=== PATIENT | male | born 1970 | race Caucasian/White ===

== ENCOUNTER 2022-09-22 09:27 | Observation (INO) | payer OTHER, SELFPAY ==
[2022-09-22] VITALS (11 sets, daily range): BP systolic 136–159; BP diastolic 79–98; PULSE 62–98; RESP 14–19; TEMP 36.4–36.6; O2SAT 97–100; BMI 28.3; BMI 27.3; BMI 26.3
--- NOTE | 2022-09-22 09:45 | ED.VIS.CHEST ---
HPI History of Present Illness Chief Complaint: Palpitations Informant: patient Onset/Context/Timing Onset: Today Activity at onset: sudden Timing: Continuous Quality: Positive for Dull Location: Left Chest Worsened By: Nothing Relieved By: - (Shock by EMS) Associated Symptoms: Positive for Nausea, Dyspnea, Lightheadedness and Palpitations; Negative for Vomiting, Diaphoresis, Cough, Fever or Acid Reflux Narrative Narrative: Patient presents with palpitations that began today while he was at work. Patient works as a teacher elementary school. Patient states he felt his heart pounding and beating fast. Patient states it began rather suddenly. Patient states he was having dull pain on the left side of his chest. Patient states he was having some tingling down into the fingers of his left hand. Patient admits to some shortness of breath with this. Patient denies any fevers or chills. Patient admits to nausea but denies any vomiting. Patient mitts to some lightheadedness and weakness. Patient states that he drove himself home from the school today and took all of his gear off. Patient called EMS after that. Patient states that EMS shocked him on the way to the emergency department and he felt better after this. CVD Risk Factors: Positive for Hypertension and Diabetes; Negative for Hypercholesterolemia, Family History 1' </=55 or Smoking PE Risk Factors: Negative for Recent Travel/Surgery, Recent Immobilization, Prior DVT or PE, Cancer or OCP + Smoking + >/=35 [facility] Medical History Diabetes mellitus type 2 in nonobese Gout HTN (hypertension) PTSD (post-traumatic stress disorder) Home Medications allopurinol 100 mg tablet 100 mg PO DAILY 09/22/22 [History Last Taken Unknown] clonazepam 1 mg tablet 1 mg PO DAILY 09/22/22 [History Last Taken Unknown] cyanocobalamin (vitamin B-12) 5,000 mcg sublingual tablet (Vitamin B-12) 5,000 mcg PO DAILY 09/22/22 [History Last Taken Unknown] losartan 100 mg tablet 100 mg PO PRN PRN Blood Pressure 09/22/22 [History Last Taken Unknown] metformin 500 mg tablet 100 mg PO DAILY 09/22/22 [History Last Taken Unknown] montelukast 10 mg tablet 10 mg PO DAILY 09/22/22 [History Last Taken Unknown] pantoprazole 40 mg tablet,delayed release 40 mg PO DAILY 09/22/22 [History Last Taken Unknown] prazosin 1 mg capsule 1 mg PO DAILY 09/22/22 [History Last Taken Unknown] semaglutide 14 mg tablet (Rybelsus) 14 mg PO DAILY 09/22/22 [History Last Taken Unknown] tadalafil 5 mg tablet 5 mg PO DAILY 09/22/22 [History Last Taken Unknown] Allergy/AdvReac Type Severity Reaction Status Date / Time gabapentin Allergy Hives Verified 09/22/22 09:36 [id number] Reductase Allergy Other Verified 09/22/22 09:36 Inhibitor Surgical History no surgical history no surgical history Social History Smoking Status: Never smoker ROS ROS ED Constitutional Constitutional ED: Denies chills or fever(s) Eyes Eyes: Denies blurry vision or change in vision ENT ENT ED: Denies rhinorrhea or sore throat Cardiovascular Cardiovascular: Reports chest pain, palpitations and racing heartbeat Respiratory/Chest Respiratory/Chest: Reports dyspnea; Denies cough Gastrointestinal Gastrointestinal: Reports nausea; Denies abdominal pain or vomiting Genitourinary Genitourinary ED: Denies dysuria or hematuria Musculoskeletal Musculoskeletal: Denies back pain or neck pain Integumentary Denies abscess or rash Neurologic Neurologic: Reports weakness; Denies headache(s) Allergic/Immunologic Allergic/Immunologic ED: Denies mouth swelling or urticaria EXAM Physical Exam Const Vital Signs: 09/22/22 09:29 09/22/22 09:41 09/22/22 09:54 Temperature 97.5 F L Temperature Source Temporal Pulse Rate 91 Respiratory Rate 19 H Respiratory Effort Short of Breath Blood Pressure 159/98 H Blood Pressure Mean 118 Pulse Ox 97 98 Oxygen Delivery Method Room Air Nasal Cannula Oxygen Flow Rate (L/min) 2 09/22/22 10:45 09/22/22 12:00 Temperature Temperature Source Pulse Rate 98 75 Respiratory Rate 14 16 Respiratory Effort Blood Pressure 143/91 H 140/79 H Blood Pressure Mean 108 99 Pulse Ox 99 98 Oxygen Delivery Method Nasal Cannula Room Air Oxygen Flow Rate (L/min) 2 Positive well nourished and well developed General Appearance ED: well developed HEENT Reports moist mucous membranes Neck supple and no JVD Resp normal respiratory effort and clear to auscultation bilaterally Cardio regular rate and no murmurs Rhythm: abnormal rhythm ectopic beats GI normal to inspection, nondistended, normoactive bowel sounds and non-tender Palpation: soft Extremity normal to inspection General Extremety ED: Negative for edema or tenderness General Extremity: Negative for edema Neuro oriented x3, CN's II-XII intact bilaterally and no sensory deficits noted Sensorium / Orientation: alert Motor Exam: strength 5/5 throughout Psych mental status grossly normal Skin no rashes or lesions noted Heart Score History: Moderately Suspicious ECG: Normal Age: >45 - <65 years Risk Factors: 1 or 2 Risk Factors Troponin: </= Normal Limit Score: 3 MDM MDM MDM Narrative Medical decision making narrative: Patient was given baby aspirin here. EKG was obtained. On my interpretation, it showed a normal sinus rhythm with a rate of 95 with occasional PACs. MT interval, QRS interval, and QTc intervals were all normal. [place] was normal. There are no acute ST or T wave changes. CBC was within normal limits. Basic metabolic profile showed a slightly elevated glucose of 184. Initial high-sensitivity troponin was normal at 19. Portable 1 view chest x-ray was obtained. On my interpretation, lung dunham are clear. There is normal cardiac silhouette. Bony thorax is normal. There is no acute process noted. Radiologist also interpreted the x-ray and agrees. 2-hour repeat high-sensitivity troponin was 55. Although it is still in the normal range, the delta is elevated. Because of this, I recommended admission to the hospital for further evaluation. Patient is agreeable with this. Case was discussed with the hospitalist. Lab Data Attestation: I reviewed the patient's lab results. Labs: Laboratory Results - last 24 hr 09/22/22 09/22/22 09/22/22 09:40 09:40 12:30 WBC 6.1 RBC 5.55 Hgb 16.2 Hct 48.5 MCV 87.4 MCH 29.2 MCHC 33.4 RDW Std Deviation 42.6 RDW Coeff of Franco 13.4 Plt Count 201 MPV 9.8 Immature Gran % (Auto) 0.300 Neut % (Auto) 66.7 Lymph % (Auto) 22.1 [place] % (Auto) 7.7 Eos % (Auto) 2.9 Baso % (Auto) 0.3 Absolute Neuts (auto) 4.1 Absolute Lymphs (auto) 1.36 Nucleated RBC % 0 Sodium 138 Potassium 3.8 Chloride 103 Carbon Dioxide 24.0 Anion Gap 11 BUN 17 Creatinine 1.12 Estim Creat Clear Calc 88.18 Est GFR (MDRD) Af Amer 89 Est GFR (MDRD) Non-Af 73 BUN/Creatinine Ratio 15.2 Glucose 184 H Calcium 9.2 Troponin I High Sens 19 55 Radiography Chest X-Ray - ED: 1 View, Read by ED Physician, Read by Radiologist and No Acute Disease Diagnostic Testing: Clinical Impression(s) from Imaging Studies Chest X-Ray 09/22/22 10:05 IMPRESSION: Normal x-ray examination of the chest. Electronically Signed: Joe Echeverria MD at 10:53 EST , EKG Initial EKG: Attestation: I personally reviewed and interpreted this EKG as follows: Interpretation: Sinus Rhythm (With occasional PACs with a rate of 95) and No Acute Injury Pattern Prior EKG tracings: available for review Prior: Unchanged (02/10/2012) Discharge Plan Triage Chief Complaint: Palpitations ED Provider: Ousmane Jones Dx/Rx/DC Orders Clinical Impression: Chest pain, Atrial fibrillation with RVR Prescriptions: No Action metformin 500 mg tablet 100 mg PO DAILY prazosin 1 mg capsule 1 mg PO DAILY clonazepam 1 mg tablet 1 mg PO DAILY Label Comments: TAKE 1.5 TO 2 TABLETS AT BEDTIME. allopurinol 100 mg tablet 100 mg PO DAILY Label Comments: TAKE 1 TABLET BY MOUTH ONCE DAILY. FOR GOUT pantoprazole 40 mg tablet,delayed release (DR/EC) 40 mg PO DAILY Label Comments: Take 1 tablet by mouth once daily. montelukast 10 mg tablet 10 mg PO DAILY losartan 100 mg tablet 100 mg PO PRN PRN (Reason: Blood Pressure) tadalafil 5 mg tablet 5 mg PO DAILY Label Comments: TAKE 1 TABLET BY MOUTH EVERY DAY cyanocobalamin (vitamin B-12) [Vitamin B-12] 5,000 mcg tablet, sublingual 5,000 mcg PO DAILY Label Comments: DISSOLVE 1 TABLET UNDER THE TONGUE ONCE DAILY. Rybelsus 14 mg tablet 14 mg PO DAILY Primary Care Provider: Monet Steiner Referrals: Monet Steiner MD [Primary Care Provider] - Disposition Disposition: Acute Care Hospital [facility]
--- NOTE | 2022-09-22 09:52 | EKG12_ITS ---
Test Reason : CP Blood Pressure : / mmHG Vent. Rate : 095 BPM Atrial Rate : 095 BPM P-R Int : 178 ms QRS Dur : 082 ms QT Int : 360 ms P-R-T Axes : 051 043 041 degrees QTc Int : 452 ms Sinus rhythm with Premature atrial complexes with Aberrant conduction Otherwise normal ECG Confirmed by SANTOSH PLEITEZ, VIMAL ([id number]), news videotape editor NICOLA NELSON ([id number]) on 09/24/2022 10:19:43 AM Referred By: RICHARD Confirmed By:VIMAL FROST MD
[2022-09-22] MEDS: Aspirin 81 MG TAB.CHEW 324 MG PO (10:00)
--- NOTE | 2022-09-22 10:05 | RAD_ITS ---
STUDY: X-RAY CHEST REASON FOR EXAM: Male, 52 years old. Chest pain . Tachycardia. Diaphoresis. TECHNIQUE: Single AP portable view of the chest. COMPARISON: None. FINDINGS: EKG electrodes are seen. The lungs are clear and expanded. There is no demonstrated pleural abnormality. Normal size heart. Normal mediastinum and bal. Normal visualized pulmonary arteries. Normal visualized aortic arch and descending thoracic aorta. Normal visualized thoracic spine. Normal visualized ribs, clavicles, and shoulders. There is no demonstrated abnormality of the visualized soft tissue structures of the upper abdomen. RAD/Chest 1 View (Portable) IMPRESSION: Normal x-ray examination of the chest. Electronically Signed: Joe Echeverria MD at 10:53 EST ,
[2022-09-22 10:12] LABS: Absolute Lymphocyte Count 1.36 X10^3/uL (0.83-4.51); Absolute Neutrophil Count 4.1 X10^3/uL (2.0-7.7); Basophil# 0.02 X10^3/uL; Basophil% 0.3 % (0-1); Eosinophil# 0.18 X10^3/uL; Eosinophils% 2.9 % (0-5); Hematocrit 48.5 % (40-54); Hemoglobin 16.2 g/dL (13.0-16.5); Lymphocyte # 1.36 X10^3/ul (0.83-4.51); Lymphocyte % 22.1 % (19-41); Mean Corp Hgb Conc 33.4 g/dL (32-36); Mean Corpuscular Hgb 29.2 pg (27.0-32.0); Mean Corpuscular Volume 87.4 fL (80-94); Mean Platelet Vol. 9.8 fl (6.2-12.0); Monocyte# 0.47 X10^3/uL; Monocyte% 7.7 % (0-10); NRBC Flagged by Analyzer 0 % (0-5); Neutrophil # 4.09 X10^3/uL (2.7-7.7); Neutrophil % 66.7 % (47-70); Platelet Count 201 K/mm3 (150-450); RBC Distribution Width CV 13.4 % (11.6-14.6); RBC Distribution Width SD 42.6 fl (35.1-43.9); Red Blood Count 5.55 M/mm3 (4.6-6.2); White Blood Count 6.1 K/mm3 (4.4-11.0)
[2022-09-22 10:29] LABS: Anion Gap 11 (5-15); BUN 17 mg/dL (7-18); BUN/Creat Ratio 15.2 RATIO (10-20); Calcium,Total 9.2 mg/dL (8.5-10.1); Chloride 103 mmol/L (98-107); Creatinine, Serum 1.12 mg/dL (0.70-1.30); EST Glomerular Filtration Rate 73 mL/min (>60); Est Glom Filt Rate - Afr Amer 89 mL/min (>60); Estimated Creatinine Clearance 88.18 ml/min; Glucose 184 mg/dL (74-106); Potassium 3.8 mmol/L (3.5-5.1); Sodium Level 138 mmol/L (136-145); Troponin-I HS (w/2H Reflex) 19 pg/mL (3.0-78.0)
[2022-09-22 12:06] LABS: Reflex Troponin-HS? (from REC) Y
[2022-09-22 12:54] LABS: Troponin-I HS 55 pg/mL (3.0-78.0)
--- NOTE | 2022-09-22 13:46 | HP.PCM.HOS_ITS ---
HPI - General General Date of Service: 09/22/22 Chief Complaint: Palpitations HPI Narrative CAMACHO YODER, is a 52 M who presents with palpitations. Symptoms began around 8 AM. 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 He began experiencing palpitations, shortness of breath and left lateral chest pressure. He has never had any of this before. He went to the school nurse who took his pulse and was noted to be in the 150s and was advised to go to the emergency room. Patient did go home to remove his firearm as well as vest and then called EMS. EMS saw him patient was noted to be in A. fib with RVR with a heart rate into the 140s and 150s. Patient was apparently looking very ill and had a weak pulse and then was cardioverted in route. Patient feels fine now though he does still have some chest pressure. Patient has been converted to normal sinus rhythm. Patient has no prior history of atrial fibrillation. Patient states that he drinks 1 cup of coffee per day and had his coffee but did not finish it. He drinks alcohol occasionally, though the patient's father, who is present, states that he drinks more than that but cannot tell me how much but thinks that it is daily. [facility] Medical History Diabetes mellitus type 2 in nonobese Gout HTN (hypertension) PTSD (post-traumatic stress disorder) Home Medications allopurinol 100 mg tablet 100 mg PO DAILY 09/22/22 [History Last Taken Unknown] bempedoic acid 180 mg tablet (Nexletol) 180 mg PO DAILY CHOLESTEROL 09/22/22 [History Last Taken 09/22/22] cholecalciferol (vitamin D3) 25 mcg (1,000 unit) tablet 50 mcg PO DAILY SUPPLEMENT 09/22/22 [History Last Taken 09/22/22] clonazepam 1 mg tablet 1 mg PO DAILY 09/22/22 [History Last Taken Unknown] cyanocobalamin (vitamin B-12) 5,000 mcg sublingual tablet (Vitamin B-12) 5,000 mcg PO DAILY 09/22/22 [History Last Taken Unknown] icosapent ethyl 1 gram capsule (Vascepa) 2 g PO BID CHOLESTEROL 09/22/22 [History Last Taken 09/22/22] losartan 25 mg tablet 25 mg PO DAILY PRN SBP > 140 09/22/22 [History Last Taken Unknown] melatonin 10 mg tablet 20 mg PO DAILY SLEEP 09/22/22 [History Last Taken 09/21/22] metformin 500 mg tablet 100 mg PO DAILY 09/22/22 [History Last Taken Unknown] montelukast 10 mg tablet 10 mg PO DAILY 09/22/22 [History Last Taken Unknown] pantoprazole 40 mg tablet,delayed release 40 mg PO DAILY 09/22/22 [History Last Taken Unknown] prazosin 1 mg capsule 1 mg PO DAILY 09/22/22 [History Last Taken Unknown] semaglutide 14 mg tablet (Rybelsus) 14 mg PO DAILY 09/22/22 [History Last Taken Unknown] tadalafil 5 mg tablet 5 mg PO DAILY 09/22/22 [History Last Taken Unknown] Allergy/AdvReac Type Severity Reaction Status Date / Time gabapentin Allergy Hives Verified 09/22/22 09:36 [id number] Reductase Allergy Other Verified 09/22/22 09:36 Inhibitor Family History (Updated 09/22/22 @ 13:[address] Ousmane Wick DO) Father Atrial fibrillation Surgical History no surgical history Social History (Updated 09/22/22 @ 13:[address] Ousmane Wick DO) Smoking Status: Never smoker alcohol intake: current alcohol intake frequency: a few times a month substance use type: does not use ROS ROS Narrative Denies any fever or chills, no history of VTE, has Blos about 70 pounds though this was intentional but that was not recently. All review of systems were negative except as mentioned above in the history of present illness and the other review of systems. Vital Signs Vital Signs Vital Signs: 09/22/22 09:29 09/22/22 09:41 09/22/22 09:54 Temperature 36.4 C L Temperature Source Temporal Pulse Rate 91 Respiratory Rate 19 H Respiratory Effort Short of Breath Blood Pressure 159/98 H Blood Pressure Mean 118 Pulse Ox 97 98 Oxygen Delivery Method Room Air Nasal Cannula Oxygen Flow Rate (L/min) 2 09/22/22 10:45 09/22/22 12:00 09/22/22 13:29 Temperature Temperature Source Pulse Rate 98 75 72 Respiratory Rate 14 16 15 Respiratory Effort Blood Pressure 143/91 H 140/79 H 142/79 H Blood Pressure Mean 108 99 100 Pulse Ox 99 98 99 Oxygen Delivery Method Nasal Cannula Room Air Oxygen Flow Rate (L/min) 2 09/22/22 13:29 Temperature 36.6 C Temperature Source Temporal Pulse Rate 68 Respiratory Rate 16 Respiratory Effort Blood Pressure 157/98 H Blood Pressure Mean 117 Pulse Ox 99 Oxygen Delivery Method Room Air Oxygen Flow Rate (L/min) Weight Weight: 97.5 kg Body Mass Index (BMI) 28.3 Physical Exam Const alert and oriented x3 HEENT normocephalic and head/scalp atraumatic Resp normal respiratory effort, no retractions, no use of accessory muscles and clear to auscultation bilaterally Cardio regular rate, regular rhythm, S1 normal heart sound and S2 normal heart sound GI normal to inspection, nondistended, normoactive bowel sounds, soft to palpation, non-tender and non-distended Extremity normal to inspection Neuro oriented x3 and CN's II-XII intact bilaterally Psych affect normal Results Lab / Micro Data Attestation: I reviewed the patient's lab results. Result Diagrams: 09/22/22 09:40 09/22/22 09:40 Labs: Laboratory Results - last 24 hr 09/22/22 09:40: WBC 6.1, RBC 5.55, Hgb 16.2, Hct 48.5, MCV 87.4, MCH 29.2, MCHC 33.4, RDW Std Deviation 42.6, RDW Coeff of Franco 13.4, Plt Count 201, MPV 9.8, Immature Gran % (Auto) 0.300, Neut % (Auto) 66.7, Lymph % (Auto) 22.1, [place] % (Auto) 7.7, Eos % (Auto) 2.9, Baso % (Auto) 0.3, Absolute Neuts (auto) 4.1, Absolute Lymphs (auto) 1.36, Nucleated RBC % 0 09/22/22 09:40: Sodium 138, Potassium 3.8, Chloride 103, Carbon Dioxide 24.0, Anion Gap 11, BUN 17, Creatinine 1.12, Estim Creat Clear Calc 88.18, Est GFR (MDRD) Af Amer 89, Est GFR (MDRD) Non-Af 73, BUN/Creatinine Ratio 15.2, Glucose 184 H, Calcium 9.2, Troponin I High Sens 19 09/22/22 12:30: Troponin I High Sens 55 EKG Initial EKG: Attestation: I personally reviewed and interpreted this EKG as follows: Prior EKG tracings: available for review EKG Rhythm Intrepretation: Atrial Fibrillation (With RVR) Follow-up EKG: Attestation: I personally reviewed and interpreted this EKG as follows: Prior EKG tracings: available for review EKG Rhythm Intrepretation: Sinus Rhythm (With PVCs) Radiology Impression Chest X-Ray 09/22/22 10:05 IMPRESSION: Normal x-ray examination of the chest. Electronically Signed: Joe Echeverria MD at 10:53 EST , Assessment & Plan Assessment/Plan (1) Atrial fibrillation with RVR: PLAN: Cardioverted in route via EMS No prior history [id number] of 2 given history of diabetes hypertension Plan * Anticoagulation: Discussed with the patient is a need for anticoagulation now prevent stroke. Will initiate enoxaparin for now and but eventually changed over to oral once all the remaining studies have been completed * Check 2D echocardiogram * start metoprolol 25 mg twice daily (2) Chest pain: PLAN: Troponins were normal but did trend upwards. This upward trend may be due to the A. fib with RVR and possibly due to the cardioversion Continue to monitor the troponins Chest pain may be related with A. fib but cannot rule out a primary event Plan * Continue with aspirin * Check lipid panel * Cycle troponins * Check stress test * Patient will need to follow with cardiology as outpatient. No cardiology consultation at this time unless troponins go up significantly or if stress test is abnormal PLAN: Plan Chronic conditions * Diabetes mellitus type 2: On metformin. Continue metformin. Add sliding scale insulin. Check A1c * Hypertension: Continue losartan VTE prophylaxis: Not indicated as patient is anticoagulated. Charges/Coding Visit Charges OBSV E&M: 52874 Initial observation care L3
--- NOTE | 2022-09-22 15:02 | ECHOD_ITS ---
Reason For Study: ATRIAL FIB-FLUTTER Procedure This was a 2D Doppler, Color Flow transthoracic echocardiogram. Exam performed portable in patient room. Left Ventricle Normal LV size. Left ventricular systolic function is normal. The estimated ejection fraction is 55 %. No regional wall motion abnormalities noted. Right Ventricle Normal RV size. Normal systolic function. Atria Normal left atrium. Normal right atrium. Mitral Valve Normal mitral valve. Tricuspid Valve Normal tricuspid valve. Aortic Valve Trisinus/trileaflet aortic valve. Pulmonic Valve Normal pulmonic valve. Great Vessels Normal aortic root. The pulmonary artery is normal size. Inferior vena cava collapse with respiration. Pericardium/Pleural No pericardial effusion. MMode/2D Measurements & Calculations LVIDd: 4.5 cm IVSd: 1.0 cm Ao root diam: 3.3 cm LVIDs: 3.1 cm LVPWd: 1.0 cm RVDd: 3.9 cm FS: 32.0 % LAV(MOD-bp): 56.7 ml LVAd ap4: 35.0 cm2 SV(MOD-sp4): 69.5 ml LAV(MOD-bp) Indexed: 26.3 ml/m2 LVLd ap4: 8.8 cm LAV(MOD-sp2): 56.7 ml EDV(MOD-sp4): 115.0 ml LAV(MOD-sp4): 53.6 ml EDV(sp4-el): 117.8 ml LVAs ap4: 19.7 cm2 LVLs ap4: 7.3 cm ESV(MOD-sp4): 45.4 ml ESV(sp4-el): 45.2 ml EF(MOD-sp4): 60.5 % EF(sp4-el): 61.7 % SV(sp4-el): 72.7 ml LA A4 area: 19.9 cm2 LA dimension(2D): 4.0 cm RA A4 area: 15.8 cm2 Time Measurements MV dec time: 0.18 sec Doppler Measurements & Calculations MV E max jaime: 86.8 cm/sec Lat Peak E' Jaime: 13.2 cm/sec Med Peak E' Jaime: 10.1 cm/sec MV A max jaime: 80.1 cm/sec E/E' lat: 6.6 E/E' med: 8.6 MV E/A: 1.1 Ao V2 max: 106.9 cm/sec LV V1 max: 83.3 cm/sec PA V2 max: 85.9 cm/sec Ao max P.6 mmHg LV V1 max P.8 mmHg ECHO/Echo Complete Interpretation Summary Normal LV size. Left ventricular systolic function is normal. The estimated ejection fraction is 55 %. Structurally normal valves. Compared to previous study, the left ventricular sy stolic function is the same.. Ordering Physician: Ousmane Wick Referring Physician: JM SANCHES Performed By: Sadie Thapa RDCS
[2022-09-22 15:42] LABS: Hemoglobin A1c 5.5 % (3.8-5.6)
[2022-09-22 16:10] LABS: Troponin-I HS 83 pg/mL (3.0-78.0)
[2022-09-22 16:55] LABS: Bedside Glucose 85 mg/dL (74-106)
--- NOTE | 2022-09-22 19:00 | NURSING ---
emergency documentation in effect
--- NOTE | 2022-09-22 19:00 | PCA ---
EMERGENCY DOCUMENTATION
[2022-09-22] MEDS: Enoxaparin 100 MG/ML Syringe SC (20:52)
[2022-09-22] MEDS: Metoprolol Tartrate 25 MG Tablet PO (20:52)
[2022-09-22] MEDS: clonazePAM 1 MG Tablet PO (22:49)
[2022-09-22] MEDS: Montelukast 10 MG Tablet PO (22:49)
[2022-09-22] MEDS: Pantoprazole Sodium 40 MG Tablet PO (22:49)
[2022-09-22 23:31] LABS: Bedside Glucose 113 mg/dL (74-106)
[2022-09-22] MEDS: Doxazosin 1 MG Tablet PO (23:57)
[2022-09-23] VITALS (7 sets, daily range): BP systolic 117–136; BP diastolic 67–97; PULSE 63–69; RESP 16–18; TEMP 36.3–36.4; O2SAT 96–98
--- NOTE | 2022-09-23 01:40 | EKG12_ITS ---
Test Reason : AM EKG Blood Pressure : / mmHG Vent. Rate : 068 BPM Atrial Rate : 068 BPM P-R Int : 212 ms QRS Dur : 082 ms QT Int : 404 ms P-R-T Axes : 035 032 024 degrees QTc Int : 429 ms Sinus rhythm with 1st degree A-V block with Premature atrial complexes with Aberrant conduction Otherwise normal ECG Confirmed by SANTOSH PLEITEZ, VIMAL ([id number]), story editor NICOLA NELSON ([id number]) on 09/24/2022 10:49:41 AM Referred By: Confirmed By:VIMAL FROST MD
--- NOTE | 2022-09-23 02:49 | CPS ---
Pt has sleep lab machine. It's set to autopap which is what pt is on at home with a range of 14-20. on room air.
[2022-09-23] MEDS: Aspirin 81 MG TAB.CHEW PO (06:30)
[2022-09-23 07:01] LABS: Bedside Glucose 115 mg/dL (74-106)
[2022-09-23 07:06] LABS: Absolute Lymphocyte Count 1.88 X10^3/uL (0.83-4.51); Absolute Neutrophil Count 3.9 X10^3/uL (2.0-7.7); Basophil# 0.01 X10^3/uL; Basophil% 0.1 % (0-1); Eosinophil# 0.29 X10^3/uL; Eosinophils% 4.3 % (0-5); Hematocrit 45.7 % (40-54); Hemoglobin 14.9 g/dL (13.0-16.5); Lymphocyte # 1.88 X10^3/ul (0.83-4.51); Lymphocyte % 27.9 % (19-41); Mean Corp Hgb Conc 32.6 g/dL (32-36); Mean Corpuscular Volume 88.9 fL (80-94); Mean Platelet Vol. 9.7 fl (6.2-12.0); Monocyte# 0.64 X10^3/uL; Monocyte% 9.5 % (0-10); NRBC Flagged by Analyzer 0 % (0-5); Neutrophil # 3.92 X10^3/uL (2.7-7.7); Neutrophil % 58.1 % (47-70); Platelet Count 182 K/mm3 (150-450); RBC Distribution Width CV 13.5 % (11.6-14.6); RBC Distribution Width SD 43.4 fl (35.1-43.9); Red Blood Count 5.14 M/mm3 (4.6-6.2); White Blood Count 6.8 K/mm3 (4.4-11.0)
[2022-09-23 07:49] LABS: ALB/GLOB Ratio 1.1 RATIO (0.9-2.4); AST(SGOT) 14 U/L (15-37); Alanine Aminotransfer ALT/SGPT 22 U/L (16-61); Albumin, Serum 3.2 g/dL (3.2-5.0); Alkaline Phosphatase 45 U/L (45-117); Anion Gap 6 (5-15); BUN 17 mg/dL (7-18); BUN/Creat Ratio 19.1 RATIO (10-20); Calcium,Total 8.7 mg/dL (8.5-10.1); Chloride 105 mmol/L (98-107); Cholesterol 164 mg/dL (200); Creatinine, Serum 0.89 mg/dL (0.70-1.30); EST Glomerular Filtration Rate 95 mL/min (>60); Est Glom Filt Rate - Afr Amer 116 mL/min (>60); Estimated Creatinine Clearance 110.97 ml/min; Glucose 112 mg/dL (74-106); High Density Lipoprotein 44 mg/dL; Potassium 3.5 mmol/L (3.5-5.1); Protein, Total 6.2 g/dL (6.4-8.2); Sodium Level 138 mmol/L (136-145); Triglycerides 194 mg/dL; Very Low Density Lipoprotein 39 mg/dL (5-40)
[2022-09-23 12:25] LABS: Bedside Glucose 109 mg/dL (74-106)
--- NOTE | 2022-09-23 12:31 | STRESSREP_ITS ---
Stress Test Report Date: 09-23-2022 Procedure: Exercise tolerance test/imaging study Indications: Chest pain; shortness of breath/dyspnea; palpitations Consent: Per the patient Procedure: The patient exercised on a Sharif protocol for 9 minutes and 52 seconds completing completing Stage III and 52 seconds of Stage IV achieving a peak heart rate of 146 bpm (86% predicted maximal heart rate) with resting blood pressure of 130/84 mmHg and a peak blood pressure 168/98 mmHg and a peak MET capacity of 12 METs. The baseline ECG demonstrated normal sinus rhythm. The peak exercise ECG demonstrated no obvious ECG changes. There was a rare PVC during exercise and recovery. The functional capacity was considered good. There was notation of chest discomfort, dyspnea, and leg fatigue during exercise. The examination was discontinued secondary to chest discomfort, dyspnea, and leg fatigue. Impression: 1. Technically adequate (percent predicted maximal heart rate greater than 85%) exercise tolerance test 2. Peak exercise ECG with no obvious ECG changes 3. There was a rare PVC during exercise and recovery 4. Nuclear images pending Myocardial perfusion imaging study: Technique: The patient was injected with 11.5 mCi of technetium 99m Cardiolite and subsequently rest SPECT Cardiolite nuclear imaging was obtained in the horizontal long, vertical long, and short axis views. The patient exercised on a Sharif protocol for 9 minutes and 52 seconds completing completing Stage III and 52 seconds of Stage IV achieving a peak heart rate of 146 bpm (86% predicted maximal heart rate) with resting blood pressure of 130/84 mmHg and a peak blood pressure 168/98 mmHg and a peak MET capacity of 12 METs. The patient was injected with 34.2 mCi of technetium 99m Cardiolite and subsequently stress SPECT Cardiolite nuclear imaging was obtained in the horizontal long, vertical long, and short axis views. A gated Cardiolite study at peak stress was o btained. Interpretation: Rest and stress SPECT Cardiolite nuclear imaging status post realignment, normalization, and attenuation correction, demonstrates the appearance of relative uniform tracer uptake and myocardial perfusion appearing within normal limits. There is end systolic thickening and brightening. The gated Cardiolite study demonstrates myocardial thickening and inward wall motion. The reported LVEF is 60%. Impression: 1. Rest and stress SPECT Cardiolite nuclear imaging demonstrate relative uniform tracer uptake and myocardial perfusion appearing within normal limits. 2. The gated Cardiolite study reports an LVEF of 60%. This note was generated with Dragon dictation software. It may contain incorrect words, spelling, and punctuation that were not noted in checking the note before signing.
[2022-09-23] MEDS: metFORMIN HCl 500 MG Tablet PO (12:58)
[2022-09-23] MEDS: Metoprolol Tartrate 25 MG Tablet PO (12:59)
[2022-09-23] MEDS: Enoxaparin 100 MG/ML Syringe SC (13:02)
[2022-09-23] MEDS: Allopurinol 100 MG Tablet PO (13:03)
--- NOTE | 2022-09-23 14:40 | DCINST_ITS ---
Discharge Instructions Diet Discharge Diet: Low fat / Low cholesterol and 2000 mg Sodium Diet Activity Discharge Activity: Return to Normal Activity Weight Bearing Status: Weight bearing as tolerated Follow Up Care Test Results: Test results from this visit will be discussed in further detail at your follow- up appointment, if applicable. Discharge Plan Admission Admit Date/Time: 09/22/22 13:31 Primary Reason for Your Visit: A. fib with RVR Attending Provider: Rebekah Cortez Primary Care Provider: Monet Steiner Consulting Providers: Ousmane Wick Instructions Patient Instructions: AFib, AFib Preventing Stroke, What Is Atrial Flutter/Atrial Fibrillation? Additional Instructions / Restrictions: Take note of changes to your medications. Follow-up with your primary care doctor within 1 week Follow-up with cardiology within 2 weeks Discharge Orders/Prescriptions Prescriptions: New metoprolol tartrate 25 mg Tablet 25 mg PO BID 30 Days Qty: 60 0RF Eliquis 5 mg tablet 5 mg PO BID 30 Days Qty: 60 0RF losartan 25 mg tablet 25 mg PO DAILY 30 Days Qty: 30 0RF Continued metformin 500 mg tablet 500 mg PO BID prazosin 1 mg capsule 1 mg PO DAILY clonazepam 1 mg tablet 2 mg PO QHS Label Comments: TAKE 1.5 TO 2 TABLETS AT BEDTIME. allopurinol 100 mg tablet 100 mg PO DAILY Label Comments: TAKE 1 TABLET BY MOUTH ONCE DAILY. FOR GOUT pantoprazole 40 mg tablet,delayed release (DR/EC) 40 mg PO DAILY Label Comments: Take 1 tablet by mouth once daily. montelukast 10 mg tablet 10 mg PO DAILY tadalafil 5 mg tablet 5 mg PO DAILY Label Comments: TAKE 1 TABLET BY MOUTH EVERY DAY cyanocobalamin (vitamin B-12) [Vitamin B-12] 5,000 mcg tablet, sublingual 5,000 mcg PO DAILY Label Comments: DISSOLVE 1 TABLET UNDER THE TONGUE ONCE DAILY. Rybelsus 14 mg tablet 14 mg PO DAILY Nexletol 180 mg tablet 180 mg PO DAILY Label Comments: TAKE 1 TABLET BY MOUTH EVERY DAY cholecalciferol (vitamin D3) 25 mcg (1,000 unit) Tablet 50 mcg PO DAILY melatonin 10 mg Tablet 20 mg PO DAILY icosapent ethyl [Vascepa] 1 gram Capsule 2 g PO BID Discontinued losartan 25 mg tablet 25 mg PO DAILY PRN (Reason: SBP > 140) Label Comments: TAKE 1 TABLET BY MOUTH ONCE DAILY. HOLD FOR SYSTOLIC BLOOD PRESSURE (TOP NUMBER) LESS THAN 140 Referrals / Follow Up: Monet Steiner MD [Primary Care Provider] - Raudel Jacobo MD [Med Staff - Active Staff] - 10/30/22 1:15 pm Disposition Disposition (needs filled in before D/C Order can be placed): Home, Self Care
--- NOTE | 2022-09-23 14:48 | DS.PCM_ITS ---
Providers Date of Admission: 09/22/22 Date of Discharge: 09/23/22 Primary Care Physician: Dr. Jm Sanches MD Reason For Visit: AFIB CHEST PAIN Diagnosis Discharge Diagnosis (1) Atrial fibrillation with RVR: Status: Acute Code(s): I48.91 - Unspecified atrial fibrillation (2) Chest pain: Status: Acute Code(s): R07.9 - Chest pain, unspecified Medications at Discharge Home Medications allopurinol 100 mg tablet 100 mg PO DAILY GOUT 09/22/22 bempedoic acid 180 mg tablet (Nexletol) 180 mg PO DAILY CHOLESTEROL 09/22/22 cholecalciferol (vitamin D3) 25 mcg (1,000 unit) tablet 50 mcg PO DAILY SUPPLEMENT 09/22/22 clonazepam 1 mg tablet 2 mg PO QHS PTSD 09/22/22 cyanocobalamin (vitamin B-12) 5,000 mcg sublingual tablet (Vitamin B-12) 5,000 mcg PO DAILY SUPPLEMENT 09/22/22 icosapent ethyl 1 gram capsule (Vascepa) 2 g PO BID CHOLESTEROL 09/22/22 melatonin 10 mg tablet 20 mg PO DAILY SLEEP 09/22/22 metformin 500 mg tablet 500 mg PO BID BLOOD SUGAR 09/22/22 montelukast 10 mg tablet 10 mg PO DAILY BRONCHITIS 09/22/22 pantoprazole 40 mg tablet,delayed release 40 mg PO DAILY GALBLADER 09/22/22 prazosin 1 mg capsule 1 mg PO DAILY PTSD 09/22/22 semaglutide 14 mg tablet (Rybelsus) 14 mg PO DAILY DIABETES 09/22/22 tadalafil 5 mg tablet 5 mg PO DAILY prostate 09/22/22 apixaban 5 mg tablet (Eliquis) 5 mg PO BID 30 days #60 tabs 09/23/22 losartan 25 mg tablet 25 mg PO DAILY 30 days #30 tabs 09/23/22 metoprolol tartrate 25 mg tablet 25 mg PO BID 30 days #60 tabs 09/23/22 Hospital Course Operations None Procedures 2-D Echocardiogram and Nuclear stress test Summary of Care Provided Minutes Spent on Discharge: 35 Hospital Course: 52-year-old male with past medical history of type II DM, hypertension, FREDIS who comes in with complaints of palpitations and left-sided chest pain. Patient works as a school fundraising director and went to the school nurse and his heart rate was in the 150s. He was advised to go to the emergency room. He however went home to pull down his firearm and vest and then called the EMS. When the EMS got there, patient was in A. fib with RVR with heart rate in the 140s and 150s. Patient looked very ill and had a weak pulse. He was cardioverted en route. By the time patient got to the emergency room, he was in normal sinus rhythm. Patient was admitted to the progressive care unit and monitored overnight. He remained in normal sinus rhythm. He was kept on metoprolol 25 mg p.o. twice da yaritza as well as Lovenox. He underwent stress test that was unremarkable. 2D echo showed EF 55%, LV systolic function was normal. His TSH was 1.0. Patient was discharged in a stable state. He was discharged on metoprolol 25 mg p.o. twice daily and Eliquis. He will follow-up with cardiology within 2 to 4 weeks. He was told to follow-up with his primary care doctor within a week. Physical Exam Narrative Physical exam: General: Alert, Oriented x3, Cooperative, No apparent distress HEENT: Atraumatic Oral: Moist Mucosa Neck: Supple Lungs: Clear to auscultation Cardiovascular: HS I+II, regular, no murmurs Abdomen: Bowel Sounds Present, Soft, Non Tender Extremities: No edema Skin: No rashes, No breakdown Neurological: Grossly intact Psych/Mental Status: Appropriate Weight / BMI Weight Weight: 90.537 kg Body Mass Index (BMI) 26.3 ABG / Lab / Microbiology Data Result Diagrams: 09/23/22 06:40 09/23/22 06:40 Laboratory: Laboratory Results - last 24 hr 09/22/22 09:40: Hemoglobin A1c 5.5 09/22/22 15:26: Troponin I High Sens 83 H, TSH 1.00 09/22/22 16:24: POC Glucose 85 09/22/22 20:50: POC Glucose 113 H 09/23/22 06:27: POC Glucose 115 H 09/23/22 06:40: WBC 6.8, RBC 5.14, Hgb 14.9, Hct 45.7, MCV 88.9, MCH 29.0, MCHC 32.6, RDW Std Deviation 43.4, RDW Coeff of Franco 13.5, Plt Count 182, MPV 9.7, Immature Gran % (Auto) 0.100, Neut % (Auto) 58.1, Lymph % (Auto) 27.9, [place] % (Auto) 9.5, Eos % (Auto) 4.3, Baso % (Auto) 0.1, Absolute Neuts (auto) 3.9, Absolute Lymphs (auto) 1.88, Nucleated RBC % 0 09/23/22 06:40: Sodium 138, Potassium 3.5, Chloride 105, Carbon Dioxide 27.0, Anion Gap 6, BUN 17, Creatinine 0.89, Estim Creat Clear Calc 110.97, Est GFR (MDRD) Af Amer 116, Est GFR (MDRD) Non-Af 95, BUN/Creatinine Ratio 19.1, Glucose 112 H, Calcium 8.7, Total Bilirubin 0.40, AST 14 L, ALT 22, Alkaline Phosphatase 45, Total Protein 6.2 L, Albumin 3.2, Globulin 3.0, Albumin/Globulin Ratio 1.1, Triglycerides 194, Cholesterol 164, LDL Cholesterol 81, VLDL Cholesterol 39, HDL Cholesterol 44 09/23/22 12:04: POC Glucose 109 H Radiography Diagnostic Testing: Radiology Impression Echocardiogram 09/22/22 15:02 Interpretation Summary Normal LV size. Left ventricular systolic function is normal. The estimated ejection fraction is 55 %. Structurally normal valves. Compared to previous study, the left ventricular systolic function is the same.. Ordering Physician: Ousmane Wick Referring Physician: JM SANCHES Performed By: Sadie Thapa RDCS D/C Instructions Discharge Diet: Low fat / Low cholesterol and 2000 mg Sodium Diet Weight Bearing Status: Weight bearing as tolerated Meaningful Use Info Meaningful Use Diagnoses (Choose all that apply): None applicable Discharge Plan Admission Admit Date/Time: 09/22/22 13:31 Primary Reason for Your Visit: A. fib with RVR Attending Provider: Rebekah Cortez Primary Care Provider: Jm Sanches Consulting Providers: Ousmane Wick Instructions Patient Instructions: What Is Atrial Flutter/Atrial Fibrillation?, AFib Preventing Stroke, AFib Additional Instructions / Restrictions: Take note of changes to your medications. Follow-up with your primary care doctor within 1 week Follow-up with cardiology within 2 weeks Discharge Orders/Prescriptions Prescriptions: New metoprolol tartrate 25 mg Tablet 25 mg PO BID 30 Days Qty: 60 0RF Eliquis 5 mg tablet 5 mg PO BID 30 Days Qty: 60 0RF losartan 25 mg tablet 25 mg PO DAILY 30 Days Qty: 30 0RF Continued metformin 500 mg tablet 500 mg PO BID prazosin 1 mg capsule 1 mg PO DAILY clonazepam 1 mg tablet 2 mg PO QHS Label Comments: TAKE 1.5 TO 2 TABLETS AT BEDTIME. allopurinol 100 mg tablet 100 mg PO DAILY Label Comments: TAKE 1 TABLET BY MOUTH ONCE DAILY. FOR GOUT pantoprazole 40 mg tablet,delayed release (DR/EC) 40 mg PO DAILY Label Comments: Take 1 tablet by mouth once daily. montelukast 10 mg tablet 10 mg PO DAILY tadalafil 5 mg tablet 5 mg PO DAILY Label Comments: TAKE 1 TABLET BY MOUTH EVERY DAY cyanocobalamin (vitamin B-12) [Vitamin B-12] 5,000 mcg tablet, sublingual 5,000 mcg PO DAILY Label Comments: DISSOLVE 1 TABLET UNDER THE TONGUE ONCE DAILY. Rybelsus 14 mg tablet 14 mg PO DAILY Nexletol 180 mg tablet 180 mg PO DAILY Label Comments: TAKE 1 TABLET BY MOUTH EVERY DAY cholecalciferol (vitamin D3) 25 mcg (1,000 unit) Tablet 50 mcg PO DAILY melatonin 10 mg Tablet 20 mg PO DAILY icosapent ethyl [Vascepa] 1 gram Capsule 2 g PO BID Discontinued losartan 25 mg tablet 25 mg PO DAILY PRN (Reason: SBP > 140) Label Comments: TAKE 1 TABLET BY MOUTH ONCE DAILY. HOLD FOR SYSTOLIC BLOOD PRESSURE (TOP NUMBER) LESS THAN 140 Referrals / Follow Up: [facility]anches [facility] - [facility] Staff[facility] - 10/30/22 1:15 pm Disposition Disposition (needs filled in before D/C Order can be placed): Home, Self Care Charges/Coding Visit Charges OBSV E&M: 47071 Observation care discharge
== END 2022-09-23 14:39 | disposition home or self-care (01) ==
LOC: ED 13:18 → PCU 14:36
PROVIDERS: Emergency Provider Emergency Medicine; PCP Internal Medicine; Visit Provider Internal Medicine
DX: I48.91 Unspecified atrial fibrillation (principal); E11.65 Type 2 diabetes mellitus with hyperglycemia; I10 Essential (primary) hypertension; M10.9 Gout, unspecified; R42 Dizziness and giddiness; F43.10 Post-traumatic stress disorder, unspecified; R07.9 Chest pain, unspecified; Z79.899 Other long term (current) drug therapy; Z79.01 Long term (current) use of anticoagulants
CPT/HCPCS: 36415; 71045; 78452; 80048; 80053; 80061; 82962; 83036; 84443; 84484; 85025; 93005; 93017; 93306; 94660; 96372; 99218; 99285; 99406; A9500; A4216; G0378